=== PATIENT | female | born 1950 | race Two or more races ===

== ENCOUNTER 2018-01-10 07:07 | Day surgery (SDC) | payer MEDICARE, OTHER ==
[2018-01-10] VITALS (7 sets, daily range): BP systolic 129–149; BP diastolic 70–76
[~2018-01-10 07:07] MED LIST: PROP10TA10 PO
[2018-01-10] MEDS ORDERED: normal saline 1000ml 1,000 ML IV ONE (07:50)
[2018-01-10 08:24] LABS: BASOPHILS # (AUTO) 0.2 X10'3 (0-0.2); BASOPHILS % (AUTO) 1.8 % (0-1); EOSINOPHILS # (AUTO) 0.2 X10'3 (0-0.9); EOSINOPHILS % (AUTO) 2.4 % (0-6); HEMATOCRIT 39.7 % (35.0-45.0); HEMOGLOBIN 13.7 g/dl (12.0-16.0); LYMPHOCYTES # (AUTO) 1.4 X10'3 (1.1-4.8); LYMPHOCYTES % (AUTO) 14.2 % (21-51); MEAN CORPUSCULAR HEMOGLOBIN 29.2 PG (27.0-31.0); MEAN CORPUSCULAR HGB CONC 34.6 % (33.0-36.5); MEAN CORPUSCULAR VOLUME 84.4 FL (78-98); MEAN PLATELET VOLUME 8.1 FL (7.4-10.4); MONOCYTES # (AUTO) 0.4 X10'3 (0-0.9); MONOCYTES % (AUTO) 4.5 % (2-12); NEUTROPHILS # (AUTO) 7.6 X10'3 (1.8-7.7); NEUTROPHILS % (AUTO) 77.1 % (42-75); PLATELET COUNT 719 X10'3 (140-440); RED CELL DISTRIBUTION WIDTH 17.3 % (11.5-14.5); WHITE BLOOD COUNT 9.9 X10'3 (4.5-11.0)
== END 2018-01-10 08:15 | disposition home or self-care (01) ==
LOC: SSTAY O 07:07 → EEVIPCON 07:07 → SSTAY O 08:15
PROVIDERS: ATTEND Internal Medicine
DX: D45 Polycythemia vera (principal); I10 Essential (primary) hypertension; Z72.89 Other problems related to lifestyle; Z79.899 Other long term (current) drug therapy
CPT/HCPCS: 36415; 85025; 99195; J7030

== ENCOUNTER 2018-01-17 07:51 | Day surgery (SDC) | payer MEDICARE, OTHER ==
[2018-01-17] VITALS (7 sets, daily range): BP systolic 139–153; BP diastolic 67–81
[2018-01-17 09:38] LABS: BASOPHILS % (AUTO) 0.4 % (0-1); EOSINOPHILS # (AUTO) 0.3 X10'3 (0-0.9); EOSINOPHILS % (AUTO) 3.1 % (0-6); HEMATOCRIT 36.3 % (35.0-45.0); HEMOGLOBIN 12.5 g/dl (12.0-16.0); LYMPHOCYTES # (AUTO) 1.7 X10'3 (1.1-4.8); LYMPHOCYTES % (AUTO) 15.9 % (21-51); MEAN CORPUSCULAR HEMOGLOBIN 29.3 PG (27.0-31.0); MEAN CORPUSCULAR HGB CONC 34.3 % (33.0-36.5); MEAN CORPUSCULAR VOLUME 85.4 FL (78-98); MEAN PLATELET VOLUME 7.9 FL (7.4-10.4); MONOCYTES # (AUTO) 0.5 X10'3 (0-0.9); MONOCYTES % (AUTO) 4.9 % (2-12); NEUTROPHILS # (AUTO) 8.1 X10'3 (1.8-7.7); NEUTROPHILS % (AUTO) 75.7 % (42-75); PLATELET COUNT 941 X10'3 (140-440); RED BLOOD COUNT 4.25 X10'6 (4.20-5.60); RED CELL DISTRIBUTION WIDTH 17.2 % (11.5-14.5); WHITE BLOOD COUNT 10.7 X10'3 (4.5-11.0)
[2018-01-17 12:12] LABS: ANISOCYTOSIS 1+; GIANT PLATELET FEW; LARGE PLATELETS FEW; PLATELET ESTIMATE DECREASED
== END 2018-01-17 09:45 | disposition home or self-care (01) ==
LOC: EEVIPCON 07:51 → SSTAY O 07:51
PROVIDERS: ATTEND Internal Medicine
DX: D45 Polycythemia vera (principal); I10 Essential (primary) hypertension; Z88.0 Allergy status to penicillin; Z79.899 Other long term (current) drug therapy
CPT/HCPCS: 36415; 85025; 99195; J7030

== ENCOUNTER 2023-09-14 13:45 | Day surgery (SDC) | payer MEDICARE ==
[2023-09-14] VITALS (8 sets, daily range): BP systolic 127–163; BP diastolic 61–82; PULSE 80–85; RESP 14–16; TEMP 97.8; O2SAT 96–100
[~2023-09-14] VITALS: Ht 160 cm; Wt 71.8 kg
[2023-09-14] MEDS ORDERED: LORazepam 0.5 MG tablet PO PRN (14:15)
[2023-09-14] MEDS ORDERED: diphenhydrAMINE 25mg capsule PO PRN (14:15)
[2023-09-14] MEDS ORDERED: normal saline 1,000 ML IV SCH (14:15)
[2023-09-14] MEDS ORDERED: HYDR500C18 PO (14:19)
[2023-09-14] MEDS ORDERED: METO-539 PO (14:19)
[2023-09-14] MEDS ORDERED: NITR0.4T48 SL (14:19)
[2023-09-14] MEDS ORDERED: ASPI-1265 PO (14:19)
[2023-09-14] MEDS ORDERED: LIDOcaine 1% (10mg/ml) 2ml vial ONE (14:33)
[2023-09-14] MEDS ORDERED: verapamil 2.5 mg/ml inj IV ONE (14:33)
[2023-09-14] MEDS ORDERED: midazolam 1 mg/ML 2ml injection ONE ×3 (14:34→15:55)
[2023-09-14] MEDS ORDERED: iohexol 350MG/ML 100ml bottle IV ONE ×2 (14:34→15:52)
[2023-09-14] MEDS ORDERED: heparin 1,000unit/ml 10ml vial 10 ML ONE (14:34)
[2023-09-14] MEDS ORDERED: fentaNYL/PF 50MCG/1 ML 2ML syringe ONE (14:34)
[2023-09-14 14:36] LABS: BASOPHILS % (AUTO) 0.4 % (0-1); EOSINOPHILS % (AUTO) 1.1 % (0-6); HEMATOCRIT 31.7 % (35.0-45.0); LYMPHOCYTES # (AUTO) 1.7 X10'3 (1.1-4.8); LYMPHOCYTES % (AUTO) 40.3 % (21-51); MEAN CORPUSCULAR HGB CONC 34.5 g/dL (33.0-36.5); MEAN CORPUSCULAR VOLUME 118.6 FL (78-98); MEAN PLATELET VOLUME 7.7 FL (7.4-10.4); MONOCYTES # (AUTO) 0.3 X10'3 (0-0.9); NEUTROPHILS # (AUTO) 2.2 X10'3 (1.8-7.7); NEUTROPHILS % (AUTO) 50.2 % (42-75); PLATELET COUNT 514 X10'3 (140-440); RED BLOOD COUNT 2.67 X10'6 (4.20-5.60); RED CELL DISTRIBUTION WIDTH 13.4 % (11.5-14.5); WHITE BLOOD COUNT 4.3 X10'3 (4.5-11.0)
[2023-09-14] MEDS ORDERED: nitroGLYCERIN 500mcg/5mL D5W 5 ML IV ONE (14:37)
[2023-09-14 14:54] LABS: APTT 27 SECONDS (22-32); PROTHROMBIN TIME 9.8 SECONDS (9.0-12.0)
[2023-09-14] MEDS ORDERED: ondansetron/PF 4mg/2ml inj ONE (15:00)
[2023-09-14 15:01] LABS: ALBUMIN 3.6 G/DL (3.4-5.0); ANION GAP 12 (8-16); BLOOD UREA NITROGEN 20 MG/DL (7-18); BUN/CREATININE RATIO 22.7 (10.0-20.0); CALCIUM 9.1 MG/DL (8.5-10.1); CHLORIDE 105 MMOL/L (99-107); CHOL/HDL RATIO 5.1 (0.00-4.99); CHOLESTEROL 240 MG/DL (0-200); CREATININE 0.88 MG/DL (0.40-0.90); GLUCOSE 105 MG/DL (70-104); HDL CHOLESTEROL 47 MG/DL (35-60); INR 0.9 INR; LDL CHOLESTEROL 153 MG/DL (50-100); POTASSIUM 3.4 MMOL/L (3.5-5.1); SODIUM 138 MMOL/L (135-145); TRIGLYCERIDES 180 MG/DL (20-135); eCRCL 48 ML/MIN; eGFR 63 ML/MIN
[2023-09-14 15:03] LABS: PLATELET ESTIMATE INCREASED
[2023-09-14 15:06] LABS: ANISOCYTOSIS FEW; POLYCHROMASIA FEW
[2023-09-14] MEDS ORDERED: clopidogrel 300mg tablet ONE (15:47)
[2023-09-14] MEDS ORDERED: aspirin 325mg tablet ONE (15:47)
[2023-09-14] MEDS ORDERED: nitroGLYCERIN 0.4mg SUBLingual tab SL ONE (16:00)
== END 2023-09-14 19:05 | disposition home or self-care (01) ==
LOC: SSTAY O 13:45 → EEVIPCON 13:45 → SSTAY O 19:05
PROVIDERS: ATTEND Student in an Organized Health Care Education/Training Program
DX: R94.39 Abnormal result of other cardiovascular function study (principal); R07.89 Other chest pain; I25.10 Atherosclerotic heart disease of native coronary artery without angina pectoris; Z88.0 Allergy status to penicillin; Z88.1 Allergy status to other antibiotic agents; Z79.899 Other long term (current) drug therapy
CPT/HCPCS: 36415; 80048; 80061; 85025; 85610; 85730; 93005; 93458; 99152; 99153; C1874; C9600; J1644; J2250; J2405; J3010; J3490; J7030; Q9967; 85008; A6258; A6402; A6449; C1725; C1751; C1769; C1894